=== PATIENT | male | born 1960 | race African-American/Black ===

== ENCOUNTER → 2018-06-13 | Outpatient (CLI) | payer BC ==
--- NOTE | 2018-06-13 13:04 | PCVCIMAG ---
APPROVED REPORT Study performed: 06/13/2018 11:18:20 EXAM: Comprehensive 2D, Doppler, and color-flow Echocardiogram Patient Location: Echo lab Status: routine BSA: 1.77 HR: 59 bpmBP: 160/118 mmHg Rhythm: NSR Other Information Study Quality: Good Risk Factors: Cardiac Risk Factors: HTN Indications Hypertension/HDD 2D Dimensions LVEF(%): 57.39 (>50%) IVSd: 7.51 (7-11mm)LVOT Diam: 18.17 (18-24mm) LVDd: 47.80 mm PWd: 10.60 (7-11mm)Ascending Ao: 30.20 (22-36mm) LVDs: 33.38 (25-40mm) Left Atrium: 34.18 (27-40mm) Aortic Root: 29.22 mm LV Single Plane 4CH: 66.26 % LV Single Plane 2CH: 67.51 %Holbrook's LVEF: 66.89 % Biplane EF: 66.7 % Volumes Left Atrial Volume (Systole) Single Plane 4CH: 47.29 mLSingle Plane 2CH: 42.95 mL LA ESV Index: 28.00 mL/m2 Aortic Valve AoV Peak Raj.: 1.38 m/s AO Peak Gr.: 7.67 mmHgLVOT Max P.46 mmHg LVOT Max V: 1.06 m/s NILSA Vmax: 1.98 cm2 Mitral Valve E/A Ratio: 1.1 MV Decel. Time: 135.82 ms MV E Max Raj.: 1.00 m/s MV A Raj.: 0.89 m/s MV PHT: 39.39 ms TDI E/Lateral E': 12.50E/Medial E': 10.00 Medial E' Raj.: 0.10 m/s Lateral E' Raj.: 0.08 m/s Pulmonary Valve PV Peak Gr.: 3.31 mmHg Pulmonary Vein P Vein S: 0.88 m/sP Vein A: 0.32 m/s P Vein D: 0.81 m/sP Vein A Dur.: 65.7 msec P Vein S/D Ratio: 1.09 Tricuspid Valve TR Peak Raj.: 2.67 m/s TR Peak Gr.: 28.45 mmHg Left Ventricle The left ventricle is normal size. There is normal LV segmental wall motion. There is borderline increasedl left ventricular wall thickness. Left ventricular systolic function is normal. The left ventricular ejection fraction is within the normal range. LVEF is 60-65%. The left ventricular diastolic function is normal. Right Ventricle The right ventricle is normal size. The right ventricular systolic function is normal. Atria The left atrium size is normal. The right atrium size is normal. Aortic Valve The aortic valve is normal in structure. Trace aortic regurgitation. There is no aortic valvular stenosis. Mitral Valve The mitral valve is normal in structure. Trace to mild mitral regurgitation. No evidence of mitral valve stenosis. Tricuspid Valve The tricuspid valve is normal in structure. Trace to mild tricuspid regurgitation. Pulmonary artery pressure is 36mmhg. Pulmonic Valve The pulmonary valve is normal in structure. Trace pulmonic regurgitation. Great Vessels The aortic root is normal in size. IVC is normal in size and collapses with >50% inspiration Pericardium There is no pericardial effusion. <Conclusion> The left ventricle is normal size. There is borderline increasedl left ventricular wall thickness. LVEF is 60-65%. The left ventricular diastolic function is normal. The right ventricle is normal size. The left atrium size is normal. The aortic valve is normal in structure. There is no aortic valvular stenosis. Trace to mild mitral regurgitation. Trace to mild tricuspid regurgitation. Pulmonary artery pressure is 36mmhg. The aortic root is normal in size. There is no pericardial effusion.
== END | disposition home or self-care (01) ==
LOC: PCVCIMAG 11:23
PROVIDERS: ATTEND Internal Medicine Cardiovascular Disease
DX: I10 Essential (primary) hypertension (principal); R06.09 Other forms of dyspnea
CPT/HCPCS: 93306

== ENCOUNTER → 2018-07-04 | Outpatient (CLI) | payer BC ==
--- NOTE | 2018-07-04 10:12 | PCVCIMAG ---
EXAM: BILATERAL RENAL ULTRASOUND AND BILATERAL RENAL DUPLEX INDICATION: Hypertension FINDINGS: Right kidney: Length measures 10.1 cm. No hydronephrosis or extensive renal scarring. Right renal duplex: Adequate technical quality. No sonographic evidence of renal artery stenosis. The aortic to renal artery ratio is 1.8. The renal vein is patent. Left kidney: Length measures 11.8 cm. No hydronephrosis or extensive renal scarring. Incidental note is made of a 5.3 x 5.4 x 6.2 cm benign cyst upper pole. Left renal duplex: Adequate technical quality. No sonographic evidence of renal artery stenosis. The aortic to renal artery ratio is 1.6. The renal vein is patent. Bladder: No obvious abnormalities. IMPRESSION: No significant renal artery stenosis. No hydronephrosis bilaterally. LOC:[id number]
--- NOTE | 2018-07-04 18:31 | PCVCIMAG ---
APPROVED REPORT Study performed: 07/04/2018 09:20:07 Exam: Stress Echocardiogram Indication: Hypertension, Dyspnea Stress Nurse: Kimberley Goldman RN Status: routine Ht: 5 ft 3 in HR: 44 bpm BP: 138/76 mmHg Rhythm: NSR Medical History Medical History: HTN Exercise History: Physically active Procedure The patient underwent an Exercise Stress Test using the Antoni Protocol. Blood pressure, heart rate, and EKG were monitored. An Echocardiogram was performed by manufacturing test technician in four stages in quad fashion. At peak stress, four selected images were obtained and placed side by side with resting images for comparison. Stress Test Details Stress Test: Exercise stress testing was performed using a Antoni protocol. HR Resting HR: 44 bpmMax Heart Rate (APMHR): 162 bpm Max HR Achieved: 139 bpmTarget HR (85% APMHR): 137 bpm % of APMHR: 85 HR response to stress: Normal HR response to stress BP Resting BP: 138/76 mmHg Max BP: 156/90 mmHg ECG Resting ECG: Sinus Bradycardia Stress ECG: Sinus Rhythm Recovery ECG: Sinus Rhythm Clinical Reason for Termination: Maximal effort Exercise duration: 12 min 39 sec Highest Stage Achieved: Stage 5: 5.0 mph at 18% grade. Exercise capacity: 15.90 METs Overall Exercise Capacity for Age: Good Pre-Stress Echo The resting Echocardiogram showed normal left ventricular contractility with an estimated Ejection Fraction of about 55-60%. Normal wall motion in all segments on baseline images. Post-Stress Echo The stress Echocardiogram showed normal left ventricular contractility with an estimated Ejection Fraction of about 65-70%. Normal augmentation of wall motion in all segments on post stress images. Clinical No clinical or ECG evidence for ischemia. Conclusion Clinical Response: Non-ischemic Exercise Capacity: Superior Stress ECG Response: Non-ischemic Stress Echo Images: Non-ischemic The left ventricle is normal in size and wall thickness in both the rest and stress images. Other Information Study Quality: Good <Conclusion> The left ventricle is normal in size and wall thickness in both the rest and stress images.
== END | disposition home or self-care (01) ==
LOC: PCVCIMAG 08:19
PROVIDERS: ATTEND Internal Medicine Cardiovascular Disease
DX: I10 Essential (primary) hypertension (principal); R06.09 Other forms of dyspnea; R42 Dizziness and giddiness; Z82.49 Family history of ischemic heart disease and other diseases of the circulatory system
CPT/HCPCS: 76770; 93325; 93351; 93975